=== PATIENT | male | born 1980 | race Caucasian/White ===

== ENCOUNTER 2017-10-29 21:02 | Emergency (ER) | payer SELFPAY ==
[~2017-10-29] VITALS: Ht 172.7 cm; Wt 106.6 kg
--- NOTE | 2017-10-29 21:02 | NUR ---
Patient to [facility] for evaluation. Side rails up. Report given to THERESA MAYFIELD.
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
[2017-10-29 21:16] VITALS: BP_SYST 125
--- NOTE | 2017-10-29 21:24 | NUR ---
ER IN [facility] examining patient.
[2017-10-29 21:29] VITALS: BP_SYST 125
--- NOTE | 2017-10-29 21:29 | NUR ---
Patient given written and verbal discharge instructions and verbalizes understanding. ER MD SMITH discussed with patient the results and treatment provided. Patient in stable condition. ID arm band removed. NO Rx given. Patient educated on pain management and to follow up with PMD. Pain Scale 2/10. Opportunity for questions provided and answered. Medication side effect fact sheet provided.
== END 2017-10-29 21:29 ==
LOC: SED 21:02
DX: M25.522 Pain in left elbow (principal); Y04.0XXA Assault by unarmed brawl or fight, initial encounter; Y93.9 Activity, unspecified; Y92.89 Other specified places as the place of occurrence of the external cause; Y99.8 Other external cause status
CPT/HCPCS: 99283